=== PATIENT | male | born 1960 | race Caucasian/White ===

== ENCOUNTER 2024-10-15 17:32 | Emergency (ER) | payer BC ==
[~2024-10-15] VITALS: Ht 185.4 cm; Wt 100.0 kg
[2024-10-15 17:35] VITALS: BP 146/78; PULSE 73; RESP 18; TEMP 36.7; O2SAT 98
== END 2024-10-16 04:41 | disposition left against medical advice (07) ==
LOC: ER 17:32
DX: S00.81XA Abrasion of other part of head, initial encounter (principal); S09.90XA Unspecified injury of head, initial encounter; E11.9 Type 2 diabetes mellitus without complications; Z79.899 Other long term (current) drug therapy; W19.XXXA Unspecified fall, initial encounter; Y93.89 Activity, other specified; Y92.89 Other specified places as the place of occurrence of the external cause; Y99.8 Other external cause status
CPT/HCPCS: 70450; 99284; Z7610